=== PATIENT | male | born 1970 | race Caucasian/White ===

== ENCOUNTER 2016-06-27 14:18 | Emergency (ER) | payer OTHER ==
[2016-06-27 15:01] VITALS: BP 111/78
--- NOTE | 2016-06-27 16:47 | UC ---
GI Bleed HPI - HPI Summary HPI Summary: WOKE UP TODAY WITH SOME DISCOMFORT IN ANAL AREA. HAD A BM MID MORNING AND NOTICED BRIGHT RED BLOOD ON TP AND DRIPPING ONTO HAND. SOME BLOOD IN TOILET BOWL. BLOOD CONTINUED TO OOZE THROUGHOUT THE DAY. NO KNOWN H/O HEMORRHOIDS. DENIES ANY INSERTIVE ANAL ACTIVITIES. - History Of Current Complaint Chief Complaint: UCGI Stated Complaint: RECTAL PAIN AND BLEEDING Time Seen by Provider: 06/27/16 16:39 Hx Obtained From: Patient Onset/Duration: Sudden Onset Severity Initially: Mild Severity Currently: Mild Pain Intensity: 0 Pain Scale Used: 0-10 Numeric Associated Pain: Discrete @ - RECTUM Character: Dull Aggravating Factor(s): Bowel Movement Associated Signs And Symptoms: Positive: Rectal Pain - Allergies/Home medications Allergies/Adverse Reactions: Allergies Allergy/AdvReac Type Severity Reaction Status Date / Time No Known Allergies Allergy Verified 04/23/12 10:02 PMH/Surg Hx/FS Hx/Imm Hx Endocrine History Of: Denies: Diabetes, Thyroid Disease Cardiovascular History Of: Denies: Cardiac Disorders, Hypertension Respiratory History Of: Denies: COPD, Asthma GI/ History Of: Denies: Ulcer Neurological History Of: Reports: Seizures - Surgical History Surgical History: None - Family History Known Family History: Positive: Hypertension - Social History Alcohol Use: Weekly Substance Use Type: None Smoking Status (MU): Never Smoked Tobacco Review of Systems Constitutional: Negative Respiratory: Negative Cardiovascular: Negative Gastrointestinal: Other - BLOOD PER RECTUM All Other Systems Reviewed And Are Negative: Yes Physical Exam Triage Information Reviewed: Yes Appearance: Well-Appearing, No Pain Distress, Well-Nourished Vital Signs: Initial Vital Signs Temp 98.3 F 06/27/16 14:56 Pulse 82 06/27/16 14:56 Resp 18 06/27/16 14:56 BP 111/78 06/27/16 14:56 Pulse Ox 99 06/27/16 14:56 Vital Signs Reviewed: Yes Eyes: Positive: Conjunctiva Clear ENT: Positive: Hearing grossly normal Neck: Positive: Supple Respiratory: Positive: No respiratory distress, No accessory muscle use Cardiovascular: Positive: Pulses Normal Abdomen Description: Positive: Soft Musculoskeletal: Positive: No Edema Neurological: Positive: Alert Psychological: Positive: Age Appropriate Behavior Skin: Negative: rashes UC Physical Exam Vital Signs On Initial Exam: Initial Vitals Temp Pulse Resp BP Pulse Ox 98.3 F 82 18 111/78 99 06/27/16 14:56 06/27/16 14:56 06/27/16 14:56 06/27/16 14:56 06/27/16 14:56 - Rectal Exam Rectal Exam: Hemorrhoids - RIGHT SIDED THROMBOSED EXTERNAL HEMORRHOID OOZING BLOOD, Tenderness Bleed Course/Dx - Differential Dx/Diagnosis Provider Diagnoses: THROMBOSED EXTERNAL HEMORRHOID Discharge - Discharge Plan Condition: Stable Disposition: HOME Patient Education Materials: Hemorrhoids (ED) Referrals: Júnior Goldstein MD [Medical Doctor] - 3 Days Poncho Guerrero NP [Primary Care Provider] - If Needed Additional Instructions: IT APPEARS YOU HAVE A THROMBOSED EXTERNAL HEMORRHOID THAT HAS ALREADY STARTED TO RESOLVE ITSELF. SIT IN HOT BATH SEVERAL TIMES DAILY AND KEEP AREA CLEAN. AVOID CONSTIPATION. FOLLOW-UP WITH GENERAL SURGERY TO DISCUSS IF MORE AGGRESSIVE INTERVENTION IS INDICATED.
== END 2016-06-27 17:18 | disposition home or self-care (01) ==
LOC: UCEAST 14:18
DX: K64.5 Perianal venous thrombosis (principal)
CPT/HCPCS: 99211; G0463

== ENCOUNTER 2017-04-09 15:32 | Emergency (ER) | payer OTHER ==
[2017-04-09 15:45] VITALS: BP 111/85
--- NOTE | 2017-04-09 17:39 | UC ---
Fiona Ling Gabriel, scribed for Jovan Groves MD on 04/09/17 at 1621 . Headache HPI - HPI Summary HPI Summary: This patient is a 46 year old M presenting to [facility] with a chief complaint of EUGENE since 5 days ago. The patient rates the pain 6/10 in severity. Patient reports sore throat, sinus congestion, green nasal discharge, and cough. - History Of Current Complaint Chief Complaint: UCRespiratory Stated Complaint: SINUS PAIN,COLD,COUGH Time Seen by Provider: 04/09/17 16:13 Hx Obtained From: Patient Onset/Duration: Lasting Days - 5, Still Present Onset Of Symptoms: Still Present Currently Pain Is: Current Pain Scale(0-10)= - 6 Pain Intensity: 6 Pain Scale Used: 0-10 Numeric Associated Signs And Symptoms: Positive: Other (Noted In Comments) - sore throat , sinus congestion, green nasal discharge, and cough - Allergies/Home Medications Allergies/Adverse Reactions: Allergies Allergy/AdvReac Type Severity Reaction Status Date / Time No Known Allergies Allergy Verified 04/09/17 15:45 PMH/Surg Hx/FS Hx/Imm Hx Previously Healthy: No Neurological History: Seizures - Surgical History Surgical History: None - Family History Known Family History: Positive: Hypertension - Social History Alcohol Use: Occasionally Substance Use Type: None Smoking Status (MU): Never Smoked Tobacco Review of Systems ENT: Sore Throat, Nasal Discharge - green, Sinus Congestion Respiratory: Cough Neurological: Headache All Other Systems Reviewed And Are Negative: Yes Physical Exam Triage Information Reviewed: Yes Appearance: Ill-Appearing Vital Signs: Initial Vital Signs Temp 99.0 F 04/09/17 15:43 Pulse 89 04/09/17 15:43 Resp 18 04/09/17 15:43 BP 111/85 04/09/17 15:43 Pulse Ox 98 04/09/17 15:43 Vital Signs Reviewed: Yes Eye Exam: Normal - EOMI, PERRL ENT: Positive: TMs normal, Other - Rhinorrhea, posterior oropharynx erythema Neck exam: Other - Posterior cervical lymphadenopathy Neck: Positive: Supple, Nontender Respiratory Exam: Normal - CTA Respiratory: Positive: Normal breath sounds Cardiovascular Exam: Normal Cardiovascular: Positive: RRR, No Murmur Abdominal Exam: Normal Abdomen Description: Positive: Nontender, Soft Bowel Sounds: Positive: Present Musculoskeletal: Positive: Strength Intact, ROM Intact, Other: - Arndt surface of wrist at distal ulna there is a tender swelling, good rom, good strength Neurological Exam: Normal - sensory/motor intact, A&O x3 Psychological Exam: Normal - affect/mood appropriate Skin Exam: Normal - color reflects adequate perfusion, dry Headache Course/Dx - Differential Dx/Diagnosis Provider Diagnoses: SINUSITIS Discharge - Discharge Plan Condition: Stable Disposition: HOME Prescriptions: Amoxicillin/Clavulanate TAB* [Augmentin TAB 875*] 875 mg PO BID #20 tab Patient Education Materials: Sinusitis (ED) Referrals: Poncho Guerrero NP [Primary Care Provider] - Additional Instructions: FOLLOW UP WITH YOUR DOCTOR. GET RECHECKED FOR ANY WORSENING OF YOUR CONDITION OR QUESTIONS OR CONCERNS. The documentation as recorded by the Fiona smith Gabriel accurately reflects the service I personally performed and the decisions made by me, Jovan Groves MD.
== END 2017-04-09 16:25 | disposition home or self-care (01) ==
LOC: UCEAST 15:32
DX: J32.9 Chronic sinusitis, unspecified (principal)
CPT/HCPCS: 99212; G0463